=== PATIENT | male | born 1995 | race African-American/Black ===

== ENCOUNTER 2023-03-11 01:02 | Emergency (ER) | payer MEDICAID, OTHER ==
[~2023-03-11] VITALS: Ht 167.6 cm; Wt 59.0 kg
[~2023-03-11 01:02] MED LIST: AMLO5TAB88 PO; ARIP30TA2 PO; EMPA10TA PO; LANTUSUD SUBCUT; LIP40 PO; LISI-186 MT; METF-874 MT; SERT-112 MT
[2023-03-11 01:11] VITALS: O2SAT 100
[2023-03-11 01:35] LABS: BASOPHILS % 0.6 % (0.0-2.0); DIFFERENTIAL COMMENT 0; EOSINOPHILS % 2.5 % (0.0-5.0); HEMATOCRIT. 34.9 % (42.0-52.0); HEMOGLOBIN. 10.9 g/dL (14.0-18.0); LYMPHOCYTES % 31.1 % (20.0-50.0); MEAN CORPUSCULAR HGB CONC 31.2 g/dL (31.0-37.0); MEAN CORPUSCULAR VOLUME 73.6 fL (80.0-94.0); MEAN PLATELET VOLUME 8.1 fl (7.4-10.4); NEUTROPHILS % 54.8 % (40.0-76.0); PLATELET 274 x1000/uL (130-400); RED BLOOD CELL COUNT 4.74 mill/uL (4.7-6.1); RED CELL DISTRIBUTION WIDTH 14.7 % (11.6-14.6); WHITE BLOOD COUNT 6.9 x1000/uL (4.5-11.0)
[2023-03-11 01:37] LABS: ACETAMINOPHEN < 2 ug/mL (10-30); ALANINE AMINOTRANSFERASE 16 IU/L (10-49); ALBUMIN 4.2 g/dL (3.2-4.8); ASPARTATE AMINOTRANSFERASE 26 IU/L (<34); BILIRUBIN TOTAL 0.3 mg/dL (0.1-1.0); CARBON DIOXIDE 30 mEq/L (21-32); CHLORIDE 107 mEq/L (98-107); CREATININE 1.4 mg/dL (0.6-1.3); GLUCOSE 90 mg/dL (70-105); POTASSIUM 4.3 mEq/L (3.5-5.1); PROTEIN TOTAL 6.7 g/dL (6.0-8.3); SODIUM 144 mEq/L (136-145); UREA NITROGEN BLOOD 20 mg/dL (9-23)
[2023-03-11 01:57] LABS: ETHANOL BLOOD < 10 mg/dL (<10)
[2023-03-11 09:06] LABS: CLARITY URINE CLEAR (CLEAR); COLOR URINE YELLOW (YELLOW); GLUCOSE URINE 3+ (NEGATIVE); KETONES URINE NEGATIVE (NEGATIVE); LEUKOCYTE ESTERASE URINE NEGATIVE (NEGATIVE); NITRITE URINE NEGATIVE (NEGATIVE); OCCULT BLOOD URINE NEGATIVE (NEGATIVE); PH URINE 5.5 (4.5-8.0); PROTEIN URINE 2+ (NEGATIVE); SPECIFIC GRAVITY URINE 1.022 (1.005-1.030); UROBILINOGEN URINE 0.2 E.U./dL (0.2-1.0)
[2023-03-11 09:28] LABS: BACTERIA URINE NONE SEEN; RBC URINE NONE SEEN /hpf (0-2); SQUAMOUS EPITHELIAL CELL URINE RARE /lpf (RARE/1+); YEAST URINE NONE SEEN
[2023-03-11 09:34] LABS: *AMPHETAMINES SCREEN URINE NEGATIVE (NEGATIVE); *BARBITURATES SCREEN URINE NEGATIVE (NEGATIVE); *BENZODIAZEPINES SCREEN URINE NEGATIVE (NEGATIVE); *COCAINE SCREEN URINE NEGATIVE (NEGATIVE); CANNABINOID URINE SCREEN NEGATIVE (NEGATIVE); ECSTASY MDMA SCREEN URINE NEGATIVE (NEGATIVE); METHADONE URINE SCREEN Neg (NEGATIVE); OPIATES URINE SCREEN NEGATIVE (NEGATIVE); PHENCYCLIDINE URINE SCREEN NEGATIVE (NEGATIVE)
[2023-03-11] MEDS ORDERED: SERTRALINE HCL 100MG TABLET PO SCH (12:15)
[2023-03-11] MEDS ORDERED: ARIPIPRAZOLE 5MG TABLET PO NR (12:15)
[2023-03-11 16:06] VITALS: BP 133/81; PULSE 73; RESP 18; TEMP 98.7
== END 2023-03-11 16:41 ==
LOC: ER 01:02
DX: R45.851 Suicidal ideations (principal); E11.9 Type 2 diabetes mellitus without complications; I12.9 Hypertensive chronic kidney disease with stage 1 through stage 4 chronic kidney disease, or unspecified chronic kidney disease; Z20.822 Contact with and (suspected) exposure to COVID-19; Z98.890 Other specified postprocedural states; Z88.5 Allergy status to narcotic agent
CPT/HCPCS: 80053; 80305; 81003; 80307; 80329; 80320; 82962; 85025; 36415; 99285; 87426; C9803; Z7610; G0480

== ENCOUNTER 2023-04-19 00:42 | Emergency (ER) | payer MEDICAID ==
[~2023-04-19] VITALS: Ht 165.1 cm; Wt 50.0 kg
[2023-04-19 00:46] VITALS: O2SAT 100
[2023-04-19 02:20] LABS: BASOPHILS % 0.8 % (0.0-2.0); DIFFERENTIAL COMMENT 0; HEMATOCRIT. 36.6 % (42.0-52.0); HEMOGLOBIN. 11.7 g/dL (14.0-18.0); LYMPHOCYTES % 27.7 % (20.0-50.0); MEAN CORPUSCULAR VOLUME 71.7 fL (80.0-94.0); MEAN PLATELET VOLUME 8.6 fl (7.4-10.4); MONOCYTES % 10.7 % (2.0-8.0); NEUTROPHILS % 58.8 % (40.0-76.0); PLATELET 242 x1000/uL (130-400); RED CELL DISTRIBUTION WIDTH 15.6 % (11.6-14.6); WHITE BLOOD COUNT 7.1 x1000/uL (4.5-11.0)
[2023-04-19 02:34] LABS: ACETAMINOPHEN < 2 ug/mL (10-30); ALANINE AMINOTRANSFERASE 12 IU/L (10-49); ASPARTATE AMINOTRANSFERASE 18 IU/L (<34); BILIRUBIN TOTAL 0.3 mg/dL (0.1-1.0); CALCIUM 9.3 mg/dL (8.7-10.4); CARBON DIOXIDE 25 mEq/L (21-32); CHLORIDE 106 mEq/L (98-107); CREATININE 1.4 mg/dL (0.6-1.3); GLUCOSE 136 mg/dL (70-105); POTASSIUM 4.2 mEq/L (3.5-5.1); SODIUM 141 mEq/L (136-145); UREA NITROGEN BLOOD 26 mg/dL (9-23)
[2023-04-19 03:48] LABS: ETHANOL BLOOD < 10 mg/dL (<10)
[2023-04-19 05:53] LABS: *AMPHETAMINES SCREEN URINE NEGATIVE (NEGATIVE); *BARBITURATES SCREEN URINE PRESUMPTIVE POSITIVE (NEGATIVE); *BENZODIAZEPINES SCREEN URINE NEGATIVE (NEGATIVE); *COCAINE SCREEN URINE NEGATIVE (NEGATIVE); CANNABINOID URINE SCREEN NEGATIVE (NEGATIVE); ECSTASY MDMA SCREEN URINE NEGATIVE (NEGATIVE); METHADONE URINE SCREEN Neg (NEGATIVE); OPIATES URINE SCREEN NEGATIVE (NEGATIVE); PHENCYCLIDINE URINE SCREEN NEGATIVE (NEGATIVE)
[2023-04-19] MEDS ORDERED: ARIPIPRAZOLE 5MG TABLET PO NR (10:15)
[2023-04-19] MEDS ORDERED: ARIPIPRAZOLE 5MG TABLET PO SCH (10:15)
[2023-04-19 16:00] VITALS: BP 129/80; PULSE 72; RESP 14; TEMP 98
== END 2023-04-19 16:09 ==
LOC: ER 00:49
DX: R45.851 Suicidal ideations (principal); I10 Essential (primary) hypertension; E11.9 Type 2 diabetes mellitus without complications; Z20.822 Contact with and (suspected) exposure to COVID-19; Z98.890 Other specified postprocedural states; Z88.5 Allergy status to narcotic agent
CPT/HCPCS: 80053; 80305; 80307; 80329; 80320; 85025; 36415; 99285; 87426; Z7610 ×4; C1893; G0480

== ENCOUNTER 2023-07-29 23:39 | Emergency (ER) | payer MEDICAID ==
[~2023-07-29] VITALS: Ht 154.9 cm; Wt 50.0 kg
[2023-07-29 23:49] VITALS: O2SAT 99
[2023-07-30] MEDS: SODIUM CHLORIDE 0.9% 1,000 ML IV ONE (00:49)
[2023-07-30 01:14] LABS: BASOPHILS % 0.7 % (0.0-2.0); DIFFERENTIAL COMMENT 0; EOSINOPHILS % 1.4 % (0.0-5.0); HEMATOCRIT. 36.5 % (42.0-52.0); HEMOGLOBIN. 11.6 g/dL (14.0-18.0); MEAN CORPUSCULAR HEMOGLOBIN 23.2 pg (28.0-32.0); MEAN CORPUSCULAR HGB CONC 31.8 g/dL (31.0-37.0); MEAN PLATELET VOLUME 8.5 fl (7.4-10.4); MONOCYTES % 10.5 % (2.0-8.0); NEUTROPHILS % 66.4 % (40.0-76.0); PLATELET 276 x1000/uL (130-400); RED BLOOD CELL COUNT 5.01 mill/uL (4.7-6.1); RED CELL DISTRIBUTION WIDTH 14.8 % (11.6-14.6)
[2023-07-30 01:16] LABS: CHLORIDE 109 mEq/L (98-107); POTASSIUM 4.5 mEq/L (3.5-5.1); SODIUM 145 mEq/L (136-145)
[2023-07-30 01:17] LABS: CALCIUM 9.2 mg/dL (8.7-10.4); CARBON DIOXIDE 27 mEq/L (21-32)
[2023-07-30 01:22] LABS: CREATININE 1.7 mg/dL (0.6-1.3); GLUCOSE 137 mg/dL (70-105); UREA NITROGEN BLOOD 23 mg/dL (9-23)
[2023-07-30 01:24] LABS: ALANINE AMINOTRANSFERASE 13 IU/L (10-49); ALBUMIN 4.6 g/dL (3.2-4.8); ASPARTATE AMINOTRANSFERASE 19 IU/L (<34); BILIRUBIN TOTAL 0.4 mg/dL (0.1-1.0); PROTEIN TOTAL 7.4 g/dL (6.0-8.3)
[2023-07-30 01:47] LABS: CLARITY URINE CLEAR (CLEAR); COLOR URINE YELLOW (YELLOW); GLUCOSE URINE 3+ (NEGATIVE); KETONES URINE NEGATIVE (NEGATIVE); LEUKOCYTE ESTERASE URINE NEGATIVE (NEGATIVE); NITRITE URINE NEGATIVE (NEGATIVE); OCCULT BLOOD URINE NEGATIVE (NEGATIVE); PH URINE 5.5 (4.5-8.0); PROTEIN URINE 2+ (NEGATIVE); SPECIFIC GRAVITY URINE 1.021 (1.005-1.030); UROBILINOGEN URINE 0.2 E.U./dL (0.2-1.0)
[2023-07-30 01:58] LABS: BACTERIA URINE 1+; RBC URINE 0-2 /hpf (0-2); SQUAMOUS EPITHELIAL CELL URINE 2+ /lpf (RARE/1+); WBC URINE 0-2 /hpf (0-2)
[2023-07-30 01:59] LABS: HYALINE CASTS URINE 0-5 /lpf
[2023-07-30 04:00] VITALS: BP 128/84; PULSE 68; RESP 12; TEMP 97.5
== END 2023-07-30 04:05 | disposition home or self-care (01) ==
LOC: ER 23:39
DX: E11.649 Type 2 diabetes mellitus with hypoglycemia without coma (principal); F32.9 Major depressive disorder, single episode, unspecified; E11.9 Type 2 diabetes mellitus without complications; I10 Essential (primary) hypertension
CPT/HCPCS: 82962 ×2; 99283; 80053; 81003; 85025; 36415; 96360; 96361; J7030; Z7610

== ENCOUNTER 2023-08-16 13:58 | Emergency (ER) | payer BC, MEDICAID ==
[~2023-08-16] VITALS: Ht 165.1 cm; Wt 60.0 kg
[2023-08-16 14:06] VITALS: O2SAT 100
[2023-08-16] MEDS: BUSPIRONE HCL 5MG TABLET PO ONE (16:00)
[2023-08-16 16:46] LABS: CLARITY URINE CLEAR (CLEAR); COLOR URINE YELLOW (YELLOW); GLUCOSE URINE 3+ (NEGATIVE); KETONES URINE NEGATIVE (NEGATIVE); LEUKOCYTE ESTERASE URINE NEGATIVE (NEGATIVE); NITRITE URINE NEGATIVE (NEGATIVE); OCCULT BLOOD URINE NEGATIVE (NEGATIVE); PH URINE 5.5 (4.5-8.0); PROTEIN URINE 3+ (NEGATIVE); SPECIFIC GRAVITY URINE 1.023 (1.005-1.030); UROBILINOGEN URINE 0.2 E.U./dL (0.2-1.0)
[2023-08-16 16:55] LABS: *AMPHETAMINES SCREEN URINE NEGATIVE (NEGATIVE); *BARBITURATES SCREEN URINE NEGATIVE (NEGATIVE); *BENZODIAZEPINES SCREEN URINE NEGATIVE (NEGATIVE); *COCAINE SCREEN URINE NEGATIVE (NEGATIVE)
[2023-08-16 16:56] LABS: CANNABINOID URINE SCREEN NEGATIVE (NEGATIVE); ECSTASY MDMA SCREEN URINE NEGATIVE (NEGATIVE); METHADONE URINE SCREEN NEGATIVE (NEGATIVE); OPIATES URINE SCREEN NEGATIVE (NEGATIVE); PHENCYCLIDINE URINE SCREEN NEGATIVE (NEGATIVE)
[2023-08-16 17:08] LABS: BACTERIA URINE NONE SEEN; RBC URINE NONE SEEN /hpf (0-2); SQUAMOUS EPITHELIAL CELL URINE RARE /lpf (RARE/1+); WBC URINE NONE SEEN /hpf (0-2)
[2023-08-16 18:24] LABS: BASOPHILS % 0.6 % (0.0-2.0); DIFFERENTIAL COMMENT 0; EOSINOPHILS % 1.4 % (0.0-5.0); HEMATOCRIT. 41.2 % (42.0-52.0); LYMPHOCYTES % 24.4 % (20.0-50.0); MEAN CORPUSCULAR HEMOGLOBIN 23.2 pg (28.0-32.0); MEAN CORPUSCULAR HGB CONC 31.5 g/dL (31.0-37.0); MEAN CORPUSCULAR VOLUME 73.8 fL (80.0-94.0); MEAN PLATELET VOLUME 8.5 fl (7.4-10.4); MONOCYTES % 9.1 % (2.0-8.0); NEUTROPHILS % 64.5 % (40.0-76.0); PLATELET 260 x1000/uL (130-400); RED BLOOD CELL COUNT 5.58 mill/uL (4.7-6.1); WHITE BLOOD COUNT 6.5 x1000/uL (4.5-11.0)
[2023-08-16 18:30] LABS: CHLORIDE 106 mEq/L (98-107); SODIUM 142 mEq/L (136-145)
[2023-08-16 18:31] LABS: CALCIUM 10.2 mg/dL (8.7-10.4); CARBON DIOXIDE 28 mEq/L (21-32)
[2023-08-16 18:36] LABS: CREATININE 1.6 mg/dL (0.6-1.3); GLUCOSE 192 mg/dL (70-105); UREA NITROGEN BLOOD 24 mg/dL (9-23)
[2023-08-16 18:37] LABS: ETHANOL BLOOD < 10 mg/dL (<10)
[2023-08-16 18:38] LABS: ACETAMINOPHEN < 2 ug/mL (10-30)
[2023-08-17 15:40] VITALS: BP 122/80; PULSE 73; RESP 15; TEMP 98.5
[2023-08-17] MEDS ORDERED: BUSPIRONE HCL 10MG TABLET PO SCH (21:00)
[2023-08-18] MEDS ORDERED: ARIPIPRAZOLE 5MG TABLET PO SCH (09:00)
[2023-08-18] MEDS ORDERED: SERTRALINE HCL 50MG TABLET PO SCH (09:00)
== END 2023-08-17 15:40 ==
LOC: ER 14:05
DX: R45.851 Suicidal ideations (principal); F32.9 Major depressive disorder, single episode, unspecified; F41.9 Anxiety disorder, unspecified; E11.9 Type 2 diabetes mellitus without complications; I10 Essential (primary) hypertension; F20.9 Schizophrenia, unspecified; Z20.822 Contact with and (suspected) exposure to COVID-19
CPT/HCPCS: 80305; 80048; 81003; 80307; 80329; 80320; 85025; 36415; 99285; 87426; Z7610; G0480

== ENCOUNTER 2023-10-01 00:36 | Inpatient (IN) | payer BC, MEDICAID ==
[~2023-10-01] VITALS: Ht 162.6 cm; Wt 48.3 kg
[2023-10-01] MEDS: ACETAMINOPHEN 1000MG/100ML 100 ML IV ONE (01:00)
[2023-10-01 01:13] LABS: BASOPHILS % 0.4 % (0.0-2.0); DIFFERENTIAL COMMENT 0; HEMATOCRIT. 38.1 % (42.0-52.0); HEMOGLOBIN. 11.9 g/dL (14.0-18.0); LYMPHOCYTES % 20.3 % (20.0-50.0); MEAN CORPUSCULAR HGB CONC 31.3 g/dL (31.0-37.0); MEAN CORPUSCULAR VOLUME 73.5 fL (80.0-94.0); MEAN PLATELET VOLUME 8.9 fl (7.4-10.4); NEUTROPHILS % 69.3 % (40.0-76.0); PLATELET 221 x1000/uL (130-400); RED BLOOD CELL COUNT 5.19 mill/uL (4.7-6.1); RED CELL DISTRIBUTION WIDTH 14.7 % (11.6-14.6); WHITE BLOOD COUNT 9.8 x1000/uL (4.5-11.0)
[2023-10-01 01:21] LABS: CHLORIDE 107 mEq/L (98-107); POTASSIUM 3.9 mEq/L (3.5-5.1); SODIUM 143 mEq/L (136-145)
[2023-10-01 01:22] LABS: CALCIUM 9.5 mg/dL (8.7-10.4); CARBON DIOXIDE 26 mEq/L (21-32)
[2023-10-01 01:27] LABS: CREATININE 1.8 mg/dL (0.6-1.3); GLUCOSE 192 mg/dL (70-105); UREA NITROGEN BLOOD 24 mg/dL (9-23)
[2023-10-01 01:32] LABS: ETHANOL BLOOD < 10 mg/dL (<10)
[2023-10-01 01:33] LABS: TROPONIN I HIGH SENSITIVITY 765 ng/L (3.0-53)
[2023-10-01 01:44] LABS: PARTIAL THROMBOPLASTIN TIME 25.1 sec (23.4-31.0)
[2023-10-01] MEDS: TETANUS, DIPHTHERIA, PERTUSSIS VAC/PF 0.5ML (>10YR OLD) IM ONE (02:02)
[2023-10-01] MEDS: ONDANSETRON HCL 4MG/2ML INJ IV ONE (02:08)
[2023-10-01] MEDS: AMOXICILLIN/POTASSIUM CLAVULANATE 875/125MG TAB PO ONE (04:27)
[2023-10-01] MEDS: GUAIFENESIN 600MG ER TABLET PO NR (05:08)
[2023-10-01] MEDS: ASPIRIN 325MG EC TABLET PO NR (05:08)
[2023-10-01 05:35] LABS: CLARITY URINE CLEAR (CLEAR); COLOR URINE YELLOW (YELLOW); GLUCOSE URINE 3+ (NEGATIVE); KETONES URINE NEGATIVE (NEGATIVE); LEUKOCYTE ESTERASE URINE NEGATIVE (NEGATIVE); NITRITE URINE NEGATIVE (NEGATIVE); OCCULT BLOOD URINE TRACE (NEGATIVE); PH URINE 5.5 (4.5-8.0); PROTEIN URINE 2+ (NEGATIVE); SPECIFIC GRAVITY URINE 1.023 (1.005-1.030); UROBILINOGEN URINE 0.2 E.U./dL (0.2-1.0)
[2023-10-01 05:55] LABS: *AMPHETAMINES SCREEN URINE NEGATIVE (NEGATIVE); *BARBITURATES SCREEN URINE NEGATIVE (NEGATIVE); *BENZODIAZEPINES SCREEN URINE NEGATIVE (NEGATIVE); *COCAINE SCREEN URINE NEGATIVE (NEGATIVE); METHADONE URINE SCREEN NEGATIVE (NEGATIVE)
[2023-10-01 05:56] LABS: CANNABINOID URINE SCREEN NEGATIVE (NEGATIVE); ECSTASY MDMA SCREEN URINE NEGATIVE (NEGATIVE); OPIATES URINE SCREEN NEGATIVE (NEGATIVE); PHENCYCLIDINE URINE SCREEN NEGATIVE (NEGATIVE)
[2023-10-01 06:22] LABS: BACTERIA URINE NONE SEEN; RBC URINE 0-2 /hpf (0-2); SQUAMOUS EPITHELIAL CELL URINE FEW /lpf (RARE/1+); WBC URINE 0-2 /hpf (0-2)
[2023-10-01] MEDS ORDERED: CLONIDINE 0.1MG TABLET PO PRN (09:15)
[2023-10-01] MEDS ORDERED: ONDANSETRON HCL 4MG/2ML INJ IV PRN (09:15)
[2023-10-01] MEDS ORDERED: DIPHENHYDRAMINE 50MG/ML VIAL IV PRN (09:15)
[2023-10-01] MEDS ORDERED: IPRATROPIUM/ALBUTEROL 0.5-3(2.5)MG/3ML NEB HHN PRN (09:15)
[2023-10-01 17:24] VITALS: BP 126/90; PULSE 71; RESP 18; TEMP 98.5
[2023-10-01 17:35] VITALS: BP 126/90; PULSE 71; RESP 18; TEMP 98.5
[2023-10-01 18:14] LABS: TROPONIN I HIGH SENSITIVITY 838 ng/L (3.0-53)
[2023-10-01] MEDS: ACETAMINOPHEN 325MG TABLET PO PRN (19:50)
[2023-10-01 20:00] VITALS: BP 104/90; PULSE 65; RESP 18; TEMP 97.5
[2023-10-01 20:00] LABS: HEPATITIS B SURFACE ANTIGEN NEGATIVE (Negative)
[2023-10-01 20:21] LABS: HEPATITIS C AB NON REACTIVE (Neg) (Negative)
[2023-10-01] MEDS ORDERED: DEXTROSE 50% WATER 50ML SYRINGE IV PRN (21:30)
[2023-10-01] MEDS: BLOOD SUGAR DIAGNOSTIC STRIP TEST SCH (21:58)
[2023-10-01] MEDS: INSULIN LISPRO 100 UNITS/ML SUBCUT SCH (22:03)
[2023-10-02] VITALS: BP 100/70; PULSE 78; RESP 15; TEMP 98.5
[2023-10-02 00:12] LABS: TROPONIN I HIGH SENSITIVITY 859 ng/L (3.0-53)
[2023-10-02] MEDS: HYDROCODONE/ACETAMINOPHEN 5/325MG TABLET PO PRN (04:02)
[2023-10-02 04:18] VITALS: BP 109/76; PULSE 74; RESP 14; TEMP 97.8
[2023-10-02] MEDS ORDERED: BLOOD SUGAR DIAGNOSTIC STRIP TEST SCH (06:50)
[2023-10-02 07:27] LABS: BASOPHILS % 0.5 % (0.0-2.0); DIFFERENTIAL COMMENT 0; EOSINOPHILS % 1.6 % (0.0-5.0); HEMATOCRIT. 42.4 % (42.0-52.0); HEMOGLOBIN. 13.2 g/dL (14.0-18.0); LYMPHOCYTES % 17.1 % (20.0-50.0); MEAN CORPUSCULAR HEMOGLOBIN 22.5 pg (28.0-32.0); MEAN CORPUSCULAR HGB CONC 31.1 g/dL (31.0-37.0); MEAN CORPUSCULAR VOLUME 72.4 fL (80.0-94.0); MEAN PLATELET VOLUME 9.1 fl (7.4-10.4); MONOCYTES % 14.5 % (2.0-8.0); NEUTROPHILS % 66.3 % (40.0-76.0); PLATELET 238 x1000/uL (130-400); RED BLOOD CELL COUNT 5.85 mill/uL (4.7-6.1); WHITE BLOOD COUNT 7.2 x1000/uL (4.5-11.0)
[2023-10-02 07:30] LABS: CARBON DIOXIDE 27 mEq/L (21-32); CHLORIDE 105 mEq/L (98-107); POTASSIUM 5.2 mEq/L (3.5-5.1); SODIUM 139 mEq/L (136-145)
[2023-10-02 07:31] LABS: CALCIUM 9.5 mg/dL (8.7-10.4)
[2023-10-02 07:36] LABS: CREATININE 1.5 mg/dL (0.6-1.3); GLUCOSE 169 mg/dL (70-105); UREA NITROGEN BLOOD 21 mg/dL (9-23)
[2023-10-02 08:00] VITALS: BP 100/73; PULSE 92; RESP 19; TEMP 98
[2023-10-02] MEDS ORDERED: SODIUM POLYSTYRENE SULFONATE 15 G/60 ML BOT PO ONE (09:00)
[2023-10-02] MEDS ORDERED: INSU100I28 SQ ×2 (10:48→11:22)
[2023-10-02 11:11] VITALS: BP 100/73; PULSE 92; TEMP 98; O2SAT 100
[2023-10-02] MEDS: SODIUM ZIRCONIUM CYCLOSILICATE 10GM/PACKET PO NR (11:24)
[2023-10-02 12:00] VITALS: PULSE 83; RESP 19
== END 2023-10-02 12:30 | disposition home or self-care (01) | DRG 420 ==
LOC: ER 00:36 → 3WST 04:38
PROVIDERS: ADMIT Internal Medicine; ATTEND Internal Medicine
DX: E10.649 Type 1 diabetes mellitus with hypoglycemia without coma (principal); I21.A1 Myocardial infarction type 2; N17.9 Acute kidney failure, unspecified; G90.8 Other disorders of autonomic nervous system; E10.22 Type 1 diabetes mellitus with diabetic chronic kidney disease; D64.9 Anemia, unspecified; S02.2XXA Fracture of nasal bones, initial encounter for closed fracture; E87.5 Hyperkalemia; F20.9 Schizophrenia, unspecified; N18.9 Chronic kidney disease, unspecified; I12.9 Hypertensive chronic kidney disease with stage 1 through stage 4 chronic kidney disease, or unspecified chronic kidney disease; F32.A Depression, unspecified; I34.1 Nonrheumatic mitral (valve) prolapse; F41.9 Anxiety disorder, unspecified; Z79.4 Long term (current) use of insulin; Z79.02 Long term (current) use of antithrombotics/antiplatelets; Z88.5 Allergy status to narcotic agent; W18.30XA Fall on same level, unspecified, initial encounter; Y93.89 Activity, other specified; Y92.89 Other specified places as the place of occurrence of the external cause; Y99.8 Other external cause status
CPT/HCPCS: 36415; 70486; 71045; 76770; 80048; 80305; 80320; 81003; 82962; 83036; 83880; 84484; 85025; 86705; 87340; 90715; 93005; 93970; 99285; J1815; J2405; G0480; J0131

== ENCOUNTER 2023-10-27 02:48 | Emergency (ER) | payer BC, MEDICAID ==
[~2023-10-27] VITALS: Ht 154.9 cm; Wt 48.0 kg
[~2023-10-27 02:48] MED LIST changes: +INSU100I28 SQ; -LANTUSUD SUBCUT
[2023-10-27 03:11] VITALS: BP 122/77; PULSE 85; RESP 18; TEMP 97.7; O2SAT 100
[2023-10-27] MEDS: SODIUM CHLORIDE 0.9% 1,000 ML IV ONE (03:15)
[2023-10-27 04:10] LABS: BASOPHILS % 0.5 % (0.0-2.0); DIFFERENTIAL COMMENT 0; HEMATOCRIT. 38.2 % (42.0-52.0); LYMPHOCYTES % 14.6 % (20.0-50.0); MEAN CORPUSCULAR HEMOGLOBIN 22.7 pg (28.0-32.0); MEAN CORPUSCULAR HGB CONC 31.4 g/dL (31.0-37.0); MEAN CORPUSCULAR VOLUME 72.4 fL (80.0-94.0); MEAN PLATELET VOLUME 8.8 fl (7.4-10.4); MONOCYTES % 11.1 % (2.0-8.0); NEUTROPHILS % 71.8 % (40.0-76.0); PLATELET 222 x1000/uL (130-400); RED BLOOD CELL COUNT 5.28 mill/uL (4.7-6.1); RED CELL DISTRIBUTION WIDTH 14.8 % (11.6-14.6); WHITE BLOOD COUNT 6.9 x1000/uL (4.5-11.0)
[2023-10-27 04:16] LABS: CALCIUM 9.2 mg/dL (8.7-10.4)
[2023-10-27 04:21] LABS: CREATININE 1.7 mg/dL (0.6-1.3)
== END 2023-10-27 06:50 | disposition home or self-care (01) ==
LOC: ER 02:48
DX: E16.2 Hypoglycemia, unspecified (principal); R53.1 Weakness; F41.9 Anxiety disorder, unspecified; E11.9 Type 2 diabetes mellitus without complications; I10 Essential (primary) hypertension; F20.9 Schizophrenia, unspecified; N28.89 Other specified disorders of kidney and ureter; Z88.5 Allergy status to narcotic agent
CPT/HCPCS: 99284; 96360; 80048; 82962; 85025; 36415; 93005; J7030

== ENCOUNTER 2024-07-28 12:08 | Emergency (ER) | payer MEDICAID ==
[~2024-07-28] VITALS: Ht 154.9 cm; Wt 48.0 kg
[~2024-07-28 12:08] MED LIST changes: -AMLO5TAB88 PO; +ASPI-1497 PO; +BUSP10TA3 PO; +COR3 PO; +FERR325T6 PO; +GABA-1180 PO; +IBUP-2741 PO; -LISI-186 MT; +MECL-299 PO; +METF-414 PO; -METF-874 MT; +MULT-1318; +SACU1TAB PO
[2024-07-28 12:15] VITALS: O2SAT 100
[2024-07-28] MEDS: SODIUM CHLORIDE 0.9% 1,000 ML IV ONE (13:13)
[2024-07-28] MEDS: ONDANSETRON HCL 4MG/2ML INJ IV ONE (13:13)
[2024-07-28] MEDS: ACTIVATED CHARCOAL 50 G/240 ML TUBE PO ONE (13:27)
[2024-07-28 13:34] LABS: BASOPHILS % 0.6 % (0.0-2.0); DIFFERENTIAL COMMENT 0; EOSINOPHILS % 0.6 % (0.0-5.0); HEMATOCRIT. 40.2 % (42.0-52.0); HEMOGLOBIN. 12.7 g/dL (14.0-18.0); LYMPHOCYTES % 16.7 % (20.0-50.0); MEAN CORPUSCULAR HEMOGLOBIN 23.1 pg (28.0-32.0); MEAN CORPUSCULAR HGB CONC 31.6 g/dL (31.0-37.0); MEAN CORPUSCULAR VOLUME 73.2 fL (80.0-94.0); MEAN PLATELET VOLUME 8.2 fl (7.4-10.4); MONOCYTES % 7.7 % (2.0-8.0); NEUTROPHILS % 74.4 % (40.0-76.0); PLATELET 245 x1000/uL (130-400); RED BLOOD CELL COUNT 5.49 mill/uL (4.7-6.1); RED CELL DISTRIBUTION WIDTH 14.9 % (11.6-14.6); WHITE BLOOD COUNT 5.7 x1000/uL (4.5-11.0)
[2024-07-28] MEDS: MECLIZINE 25MG TABLET PO ONE (13:37)
[2024-07-28 13:42] LABS: CHLORIDE 106 mEq/L (98-107); POTASSIUM 4.6 mEq/L (3.5-5.1); SODIUM 142 mEq/L (136-145)
[2024-07-28 13:43] LABS: CARBON DIOXIDE 22 mEq/L (21-32)
[2024-07-28 13:44] LABS: CALCIUM 9.8 mg/dL (8.7-10.4)
[2024-07-28 13:48] LABS: CREATININE 1.6 mg/dL (0.6-1.3); GLUCOSE 112 mg/dL (70-105)
[2024-07-28 13:49] LABS: ETHANOL BLOOD < 10 mg/dL (<10); UREA NITROGEN BLOOD 22 mg/dL (9-23)
[2024-07-28 13:50] LABS: ACETAMINOPHEN < 2 ug/mL (10-30)
[2024-07-28 14:28] LABS: *AMPHETAMINES SCREEN URINE NEGATIVE (NEGATIVE); *BARBITURATES SCREEN URINE NEGATIVE (NEGATIVE); *BENZODIAZEPINES SCREEN URINE NEGATIVE (NEGATIVE); *COCAINE SCREEN URINE NEGATIVE (NEGATIVE); CANNABINOID URINE SCREEN NEGATIVE (NEGATIVE); ECSTASY MDMA SCREEN URINE NEGATIVE (NEGATIVE); METHADONE URINE SCREEN NEGATIVE (NEGATIVE); OPIATES URINE SCREEN NEGATIVE (NEGATIVE); PHENCYCLIDINE URINE SCREEN NEGATIVE (NEGATIVE)
[2024-07-28 15:02] LABS: CLARITY URINE CLEAR (CLEAR); COLOR URINE YELLOW (YELLOW); PROTEIN URINE 1+ (NEGATIVE)
[2024-07-28 15:03] LABS: GLUCOSE URINE TRACE (NEGATIVE); KETONES URINE NEGATIVE (NEGATIVE); LEUKOCYTE ESTERASE URINE NEGATIVE (NEGATIVE); NITRITE URINE NEGATIVE (NEGATIVE); OCCULT BLOOD URINE NEGATIVE (NEGATIVE); UROBILINOGEN URINE 0.2 E.U./dL (0.2-1.0)
[2024-07-28 15:15] LABS: BACTERIA URINE NONE SEEN; RBC URINE NONE SEEN /hpf (0-2); SQUAMOUS EPITHELIAL CELL URINE NONE SEEN /lpf (RARE/1+); WBC URINE 0-2 /hpf (0-2)
[2024-07-28] MEDS: MECLIZINE 25MG TABLET PO NR (15:53)
[2024-07-29 15:44] VITALS: BP 97/62; PULSE 70; RESP 14; TEMP 36.9; O2SAT 99
[2024-07-30] MEDS ORDERED: ARIPIPRAZOLE 5MG TABLET PO SCH (09:00)
== END 2024-07-29 17:54 ==
LOC: ER 12:16
DX: T14.91XA Suicide attempt, initial encounter (principal); F41.9 Anxiety disorder, unspecified; I12.9 Hypertensive chronic kidney disease with stage 1 through stage 4 chronic kidney disease, or unspecified chronic kidney disease; N18.9 Chronic kidney disease, unspecified; F31.9 Bipolar disorder, unspecified; F25.1 Schizoaffective disorder, depressive type; E11.22 Type 2 diabetes mellitus with diabetic chronic kidney disease; E78.00 Pure hypercholesterolemia, unspecified; Z79.899 Other long term (current) drug therapy; Z88.5 Allergy status to narcotic agent; Z99.2 Dependence on renal dialysis; Z20.822 Contact with and (suspected) exposure to COVID-19; X58.XXXA Exposure to other specified factors, initial encounter; Y93.89 Activity, other specified; Y92.89 Other specified places as the place of occurrence of the external cause; Y99.8 Other external cause status
CPT/HCPCS: 80305; 80048; 81003; 80307; 80329; 80320; 85025; 36415; 96361; 96374; 99285; 87426; J8597; J2405; J7030; Z7610 ×3; A4606; G0480